=== PATIENT | male | born 1930 | race Caucasian/White ===

== ENCOUNTER 2017-07-20 07:29 | Observation (INO) | payer MEDICARE, BC ==
[~2017-07-20] VITALS: Ht 182.9 cm; Wt 84.1 kg
[2017-07-20 08:39] LABS: BASOPHILS 0.2 % (0-2); EOSINOPHILS 0.9 % (0-7); HEMATOCRIT 41.6 % (42.0-54.0); HEMOGLOBIN 14.1 g/dL (13.5-17.5); IMMATURE GRANULOCYTES 0.3 % (0-5); LYMPHOCYTES 12.5 % (15-50); MCHC 33.9 g/dL (31.0-37.0); MCV 91.4 fL (80.0-100.0); MEAN PLATELET VOLUME 10.3 fL (7.4-10.4); MONOCYTES 10.9 % (2-11); NEUTROPHILS 75.2 % (40-80); PLATELET COUNT 206 10x3/uL (130-400); RBC 4.55 10x6/uL (4.20-6.10); RDW 13.6 % (11.5-14.5); WBC 9.4 10x3/uL (4.8-10.8)
[2017-07-20 08:44] LABS: ANION GAP 13.8 mmol/L (8-16); CALCIUM 9.3 mg/dL (8.5-10.1); CARBON DIOXIDE 25.4 mmol/L (21.0-32.0); CREATININE - SERUM 1.2 mg/dL (0.6-1.3); POTASSIUM - SERUM 4.2 mmol/L (3.5-5.1)
[2017-07-20 08:46] LABS: APTT 33.2 SECONDS (22.8-39.4); INR 0.98 (0.85-1.17); PROTIME 12.6 SECONDS (11.6-15.0)
[2017-07-20 16:18] VITALS: BMI 25.1
[2017-07-20] MEDS ORDERED: FLOMAX0.4 MG PO (16:48)
[2017-07-20 16:52] VITALS: Ht 182.9 cm; Wt 84.1 kg
[2017-07-20 16:56] VITALS: BP 144/64
[2017-07-20 20:00] VITALS: BP 129/63
[2017-07-21] VITALS: BP 112/60
[2017-07-21 04:00] VITALS: BP 112/65
[2017-07-21] MEDS ORDERED: HYDROCODONE-APA1 TAB PO (07:56)
[2017-07-21] MEDS ORDERED: LIDODERM 5 %1 PATCH TRANSDERM (07:56)
[2017-07-21 07:59] VITALS: BP 115/61
== END 2017-07-21 12:00 | disposition home or self-care (01) ==
LOC: D.ER 07:29 → D.MS 14:58 → OBSVTIME 14:58 → D.MS 07-21 12:00
PROVIDERS: Emergency Medicine
DX: S27.2XXA Traumatic hemopneumothorax, initial encounter (principal); W19.XXXA Unspecified fall, initial encounter; S22.42XA Multiple fractures of ribs, left side, initial encounter for closed fracture; N40.0 Benign prostatic hyperplasia without lower urinary tract symptoms; N50.89 Other specified disorders of the male genital organs

== ENCOUNTER 2017-09-21 07:23 | Day surgery (SDC) | payer MEDICARE, BC ==
[2017-09-20 10:08] LABS: HEMATOCRIT 40.4 % (42.0-54.0); HEMOGLOBIN 13.7 g/dL (13.5-17.5); LYMPHOCYTES 27.5 % (15-50); MCH 29.8 pg (26.0-34.0); MCHC 33.9 g/dL (31.0-37.0); MEAN PLATELET VOLUME 9.5 fL (7.4-10.4); NEUTROPHILS 64.6 % (40-80); PLATELET COUNT 196 10x3/uL (130-400); RBC 4.59 10x6/uL (4.20-6.10); RDW 13.8 % (11.5-14.5)
[2017-09-20 10:14] LABS: ANION GAP 10.7 mmol/L (8-16); CALCIUM 9.2 mg/dL (8.5-10.1); CARBON DIOXIDE 28.6 mmol/L (21.0-32.0); CREATININE - SERUM 1.2 mg/dL (0.6-1.3); POTASSIUM - SERUM 4.3 mmol/L (3.5-5.1)
--- NOTE | ~2017-09-21 | OP ---
PATIENT NAME: ELYSE CARRASCO MEDICAL RECORD: [id number] :30 LOCATION:D.OPS ADMISSION DATE: SURGEON: ABBI MILNER MD DATE OF OPERATION: 09/21/2017 SURGEON: Abbi Milner MD ANESTHESIA: General anesthesia by Vitor Armenta CRNA PREOPERATIVE DIAGNOSES: Right hydrocele and also phimosis. PROCEDURE: 1. Right hydrocelectomy by Jaboulay procedure. 2. Circumcision. FINDINGS: 1. Tight phimosis. 2. Right hydrocele with 200 mL volume. SPECIMENS: 1. Hydrocele sac. 2. Foreskin of penis. ESTIMATED BLOOD LOSS: Minimal. CLINICAL HISTORY: This is an 87-year-old male who is admitted to the hospital after he fell and developed a pneumothorax. While he was in the hospital, he was complaining about swelling in the right scrotum and I saw him in consultation. A right hydrocele was detected and confirmed by ultrasound. He would like to have this removed as it is quite tense and uncomfortable for him. He is allergic to OYSTERS. We gave him ampicillin and sulbactam regional business manager to the OR. DESCRIPTION OF PROCEDURE: The patient was given induction of general anesthesia in supine position. He was then prepped and draped. While prepping him, the nurse noted that he had quite tight phimosis. The foreskin could not be retracted to expose the glans penis at all. We therefore discussed the situation with his as the patient was already asleep. Since he was asleep and he needs a circumcision, we requested permission from the to go ahead and do a circumcision as well as his right hydrocelectomy. The did give consent verbally to have the circumcision added to his procedure. We started first with the right hydrocelectomy. A median rhaphe incision was made about 3 cm in length. We went through the dartos fascia with the Bovie. A #15 blade was used to make a small opening through the hydrocele sac in the tunica vaginalis. We were then able to Yankauer sucker through this opening and drain the hydrocele fluid out. We obtained about 200 mL of fluid. The hydrocele incision in the tunica vaginalis was lengthened using Metzenbaum scissors. We were then able to suzette the testicle out through the hydrocele sac. We noted the appendix testis and appendix epididymis. These were amputated at their bases using the Bovie and the specimens were sent to pathology. The excess tunica vaginalis was trimmed off on the lateral surface. We trimmed close enough to the edge of the prostate that the other flap that remained on the medial surface was able to wrap around behind the cord and we sutured to the lateral surface of our excision. The part of the tunica vaginalis that we had trimmed off was sent to pathology as a hydrocele sac. The other edge was then OPERATIVE REPORT [id number] ELYSE CARRASCO sutured using running 4-0 Vicryl to our cut edge. This was with the other edge wrapping behind the cord, which constitutes the Jaboulay procedure. We made sure that there was no bleeding. The right testicle was then placed back into its hemiscrotum. Dartos fascia was reapproximated using running 4-0 Vicryl. Simple interrupted 4-0 Monocryl was used to close the scrotal skin. We then turned our attention to the circumcision. Hemostats were placed at the distal edge of the foreskin and the midline was crushed using a straight clamp. Metzenbaum scissors were used to make a dorsal slit. This was extended proximally until we could finally retract the foreskin and expose the glans penis fully. The glans penis was then cleaned using iodine in order to provide a sterile field. The lines of resection were marked out. First, a 2-0 nylon suture was placed through the glans penis and put on a hemostat to allow pulling the penis into full erectile length. A dorsal penile nerve block was also given prior to starting this procedure using 1% lidocaine without epinephrine. We marked the foreskin just 5-mm proximal to the palumbo of the glans penis. The cutaneous foreskin was marked at its corresponding location with the foreskin pulled back forward. The 2 incisions were made using a #10 blade. The dartos fascia in between was removed with a combination of Bovie and Metzenbaum scissors. Finally, the entire resection that we were removing was free and sent to pathology as the foreskin specimen. Any bleeding within the dartos fascia was cauterized. We then reapproximated the cutaneous foreskin to the remaining foreskin proximal to the palumbo of the glans using simple interrupted 4-0 Vicryl. A Vaseline gauze was applied around the incision line. A Kerlix dressing was applied to the penis. For the scrotal incision, fluffs and mesh panties were given. The patient was advised not to shower for 2 days to allow the incision lines to heal. At that point, he can then remove all the dressings and shower normally. I will see him in followup next week to check on wound healing. TRANSINT:[id number] Voice Confirmation ID: [id number] DOCUMENT ID: [id number] ABBI MILNER MD at 1349 CC: [id number] DICTATION DATE: 09/21/17 1315 SENIOR IT PROJECT MANAGER: 09/21/17 1341 [id number] [place] [address]
[~2017-09-21 07:23] MED LIST: EZFE 200200 MG PO; FLOMAX0.4 MG PO; HYDROCODONE-APA1 TAB PO; LIDODERM 5 %1 PATCH TRANSDERM; LIVER CLEANSE PO; PROSCAR5 MG PO
[2017-09-21 08:47] VITALS: BP 113/65; BMI 26.6
== END 2017-09-21 15:35 | disposition home or self-care (01) ==
LOC: D.OPS 07:23 → D.PAN 09:45 → D.OPS 13:00 → D.PAN 13:00 → D.OPS 15:35
PROVIDERS: Anesthesiology
DX: N43.3 Hydrocele, unspecified (principal); N47.1 Phimosis; K21.9 Gastro-esophageal reflux disease without esophagitis; Z01.812 Encounter for preprocedural laboratory examination

== ENCOUNTER → 2018-05-21 16:11 | Outpatient (CLI) | payer MEDICARE, BC | END | disposition home or self-care (01) | LOC: D.LABREF 16:11 | DX: N39.0 Urinary tract infection, site not specified (principal) ==

== ENCOUNTER 2018-06-12 05:55 | Day surgery (SDC) | payer MEDICARE, BC ==
[2018-06-11 12:20] LABS: BASOPHILS 0.6 % (0-2); EOSINOPHILS 2.7 % (0-7); HEMATOCRIT 39.2 % (42.0-54.0); HEMOGLOBIN 13.2 g/dL (13.5-17.5); LYMPHOCYTES 27.3 % (15-50); MCH 30.8 pg (26.0-34.0); MCHC 33.7 g/dL (31.0-37.0); MCV 91.4 fL (80.0-100.0); MEAN PLATELET VOLUME 10.3 fL (7.4-10.4); MONOCYTES 7.8 % (2-11); NEUTROPHILS 61.6 % (40-80); PLATELET COUNT 174 10x3/uL (130-400); RBC 4.29 10x6/uL (4.20-6.10); RDW 14.1 % (11.5-14.5); WBC 4.9 10x3/uL (4.8-10.8)
[2018-06-11 12:33] LABS: INR 0.98 (0.85-1.17); PROTIME 12.7 SECONDS (11.6-15.0)
[2018-06-11 12:36] LABS: ANION GAP 10.5 mmol/L (8-16); CALCIUM 8.6 mg/dL (8.5-10.1); CARBON DIOXIDE 29.6 mmol/L (21.0-32.0); CREATININE - SERUM 1.1 mg/dL (0.6-1.3); POTASSIUM - SERUM 4.1 mmol/L (3.5-5.1)
[~2018-06-12] VITALS: Ht 177.8 cm; Wt 81.6 kg
--- NOTE | ~2018-06-12 | OP ---
PATIENT NAME: ELYSE CARRASCO MEDICAL RECORD: [id number] :30 LOCATION:[facility] ADMISSION DATE: SURGEON: ABBI MILNER MD DATE OF OPERATION: 06/12/2018 SURGEON: Abbi Milner MD ANESTHESIA: TIVA was by Dyana Ford CRNA. DIAGNOSIS: Obstructive BPH, bulbar urethral stricture. PROCEDURE: Cystoscopy, dilation of urethral stricture, UroLift implantation times 4 units. FINDINGS: Bulbar urethral stricture. Obstructive lateral lobes of the prostate. In the bladder, there were single ureteral orifices bilaterally. The bladder was heavily trabeculated with cellules and diverticula. No bladder tumors were seen. CLINICAL HISTORY: This is an 88-year-old male, who has obstructive voiding symptoms. He recently had a urinary tract infection with Klebsiella pneumoniae. He was treated with doxycycline. Along with the UTI, he had orchitis. His urinalysis in the office was normal after treatment with antibiotics. He had quite severe obstructive voiding symptoms with his IPPS score of 16 and a quality of life score of 5, which means that he is very unhappy with his voiding symptoms. He comes today to have the UroLift procedure performed. HE IS ALLERGIC TO OYSTERS. He was given Ancef emanations analysis technician to the OR. DESCRIPTION OF PROCEDURE: The patient was given IV sedation. He was then placed into dorsal lithotomy position, prepped and draped. We visualized the urethra with the UroLift scope. A bulbar urethral stricture was found. I intended to perform an incision of this with a direct vision internal urethrotomy. The DVIU kit was brought out and the scope was placed in using an obturator. The passage of scope managed to dilate the stricture. Thus, no incision was necessary. We switched back to the UroLift scope. Findings are as outlined above. We started just at the verumontanum level. Just proximal to the verumontanum level, 1 unit was placed on each side towards the anterior urethra. This was on the lateral lobes closer to the anterior surface. Once these units were detached, we then placed 2 more units proximal to these closer to the bladder neck. The units were kept about 2 cm away from the bladder neck. He had a nice wide open urinary passage now. Placement of the UroLift devices took less than 6 minutes. The bladder was then emptied through the cystoscope sheath and then the scope was removed. I will see the patient in followup in 2 weeks' time. TRANSINT:[id number] Voice Confirmation ID: [id number] DOCUMENT ID: [id number] OPERATIVE REPORT [id number] ELYSE CARRASCO ROBERT S MD at 0958 CC: [id number] DICTATION DATE: 06/12/18911 HAND MIXER: 06/12/18 0923 [address] [address] [place] [id number]
[2018-06-12 06:27] VITALS: BP 131/65; Ht 177.8 cm; Wt 81.6 kg
== END 2018-06-12 10:25 | disposition home or self-care (01) ==
LOC: D.OPS 05:55 → D.PAN 08:00 → D.OPS 08:00
PROVIDERS: Anesthesiology
DX: N40.1 Benign prostatic hyperplasia with lower urinary tract symptoms (principal); N13.8 Other obstructive and reflux uropathy; N35.912 Unspecified bulbous urethral stricture, male

== ENCOUNTER 2019-03-04 06:59 | Inpatient (IN) | payer MEDICARE, BC ==
[~2019-03-04] VITALS: Ht 177.8 cm; Wt 83.9 kg
[2019-03-04] MEDS ORDERED: ATIVAN0.5 MG PO (07:06)
[2019-03-04] MEDS ORDERED: GAS-X125 M1 PO (07:07)
[2019-03-04 07:28] LABS: BASOPHILS 0.6 % (0-2); EOSINOPHILS 0.9 % (0-7); HEMATOCRIT 42.3 % (42.0-54.0); HEMOGLOBIN 14.9 g/dL (13.5-17.5); IMMATURE GRANULOCYTES 0.2 % (0-5); LYMPHOCYTES 20.6 % (15-50); MCH 31.2 pg (26.0-34.0); MCHC 35.2 g/dL (31.0-37.0); MCV 88.5 fL (80.0-100.0); MEAN PLATELET VOLUME 10.1 fL (7.4-10.4); MONOCYTES 8.7 % (2-11); PLATELET COUNT 183 10x3/uL (130-400); RBC 4.78 10x6/uL (4.20-6.10); RDW 12.8 % (11.5-14.5); WBC 5.4 10x3/uL (4.8-10.8)
[2019-03-04 07:42] LABS: ALBUMIN 3.8 g/dL (3.4-5.0); ANION GAP 14.6 mmol/L (8-16); BILIRUBIN - TOTAL 1.09 mg/dL (0.2-1.3); CALCIUM 9.8 mg/dL (8.5-10.1); CARBON DIOXIDE 25.9 mmol/L (21.0-32.0); CREATININE - SERUM 1.4 mg/dL (0.6-1.3); POTASSIUM - SERUM 4.5 mmol/L (3.5-5.1); PROTEIN - SERUM 8.3 g/dL (6.4-8.2)
[2019-03-04 12:23] VITALS: BP 134/62; BMI 26.6
[2019-03-04] MEDS ORDERED: [UNRECOGNIZED DRUG - OTHER] PO (13:06)
[2019-03-04] MEDS ORDERED: XANAX0.5 MG PO (13:08)
[2019-03-04] MEDS ORDERED: [UNRECOGNIZED DRUG - OTHER] PO (13:10)
[2019-03-04 16:15] LABS: AMYLASE - SERUM 32 U/L (25-115); LIPASE 126 U/L (73-393)
[2019-03-04 17:15] VITALS: BP 127/61
--- NOTE | 2019-03-04 18:50 | NUR ---
NOTIFIED PATIENT OF NEED FOR URINE AND STOOL SPECIMEN. VERBALIZED UNDERSTADING. NO QUESTIONS AT THIS TIME. IV INTACT. CALL LIGHT WITHIN REACH.
[2019-03-04 20:00] VITALS: BP 96/50
--- NOTE | 2019-03-04 20:00 | NUR ---
ALERT SITTING UP IN BED, DENIES PAIN, SEE SHIFT ASSESSMENT, CALL LIGHT IN REACH
[2019-03-05 01:59] LABS: APPEARANCE CLEAR (CLEAR); BILIRUBIN NEGATIVE (NEGATIVE); COLOR YELLOW (YELLOW); GLUCOSE NEGATIVE (NEGATIVE); KETONE SMALL mg/dL (NEGATIVE); NITRITE NEGATIVE (NEGATIVE); PROTEIN 2+ mg/dL (NEGATIVE); UROBILINOGEN NORMAL (NORMAL)
[2019-03-05 02:00] LABS: BACTERIA FEW /hpf (NONE SEEN); EPITHELIAL CELLS 0-5 /hpf (0-5); RED CELLS - URINE 0-5 /hpf (0-5); WHITE CELLS - URINE 0-5 /hpf (0-5)
[2019-03-05 07:57] LABS: ANION GAP 11.1 mmol/L (8-16); CALCIUM 8.7 mg/dL (8.5-10.1); CARBON DIOXIDE 26.7 mmol/L (21.0-32.0); CREATININE - SERUM 1.3 mg/dL (0.6-1.3); MAGNESIUM - SERUM 2.1 mg/dL (1.8-2.4); PHOSPHOROUS 3.3 mg/dL (2.5-4.9); POTASSIUM - SERUM 4.8 mmol/L (3.5-5.1)
[2019-03-05 09:33] VITALS: BP 113/56
[2019-03-05 09:41] LABS: BASOPHILS 0.4 % (0-2); EOSINOPHILS 1.1 % (0-7); HEMATOCRIT 37.2 % (42.0-54.0); HEMOGLOBIN 12.8 g/dL (13.5-17.5); IMMATURE GRANULOCYTES 0.2 % (0-5); LYMPHOCYTES 22.9 % (15-50); MCH 30.5 pg (26.0-34.0); MCHC 34.4 g/dL (31.0-37.0); MCV 88.6 fL (80.0-100.0); MONOCYTES 7.2 % (2-11); NEUTROPHILS 68.2 % (40-80); PLATELET COUNT 163 10x3/uL (130-400); RDW 12.9 % (11.5-14.5); WBC 4.7 10x3/uL (4.8-10.8)
[2019-03-05 10:03] VITALS: Ht 177.8 cm; Wt 83.9 kg
[2019-03-05 11:29] VITALS: BP 137/62
--- NOTE | 2019-03-05 15:07 | NUR ---
PT RESTING IN BED. NO SIGNS OF DISTRESS. IV TO RIGHT FORARM PATENT NO REDNESS OR TENDERNESS. DENIES ANY NEED AT THIS TIME. CALL LIGHT IN REACH. BED LOW POSITION. FAMILY AT BEDSIDE.
[2019-03-05 16:35] VITALS: BP 104/55
--- NOTE | 2019-03-05 18:45 | NUR ---
I have reviewed this patient and I concur with the Shift Assessment completed by the Licensed Practical Nurse today this shift.
[2019-03-06] VITALS: BP 107/55
[2019-03-06 04:00] VITALS: BP 152/64
--- NOTE | 2019-03-06 04:23 | NUR ---
PT RESTING IN BED. EYES CLOSED. NO SIGNS OF DISTRESS. BREATHING EVEN AND UNLABORED. IV SITE RT FA DRESSING CLEAN DRY AND INTACT. NO SIGNS OF INFECTION. SKIN CLEAN DRY AND INTACT. NO LOWER LEG SWELLOIGN PRESENT. WILL CONTINUE PLAN OF CARE. CALL LIGHT IN REACH. BED LOWERED AND LOCKED. BED RAILS UP X1.
[2019-03-06 04:45] LABS: BASOPHILS 0.2 % (0-2); EOSINOPHILS 2.2 % (0-7); HEMOGLOBIN 11.6 g/dL (13.5-17.5); MCH 30.1 pg (26.0-34.0); MCHC 34.1 g/dL (31.0-37.0); MCV 88.1 fL (80.0-100.0); MEAN PLATELET VOLUME 9.8 fL (7.4-10.4); MONOCYTES 13.2 % (2-11); NEUTROPHILS 61.4 % (40-80); PLATELET COUNT 163 10x3/uL (130-400); RBC 3.86 10x6/uL (4.20-6.10); WBC 4.1 10x3/uL (4.8-10.8)
[2019-03-06 04:55] LABS: ANION GAP 13.7 mmol/L (8-16); CALCIUM 8.5 mg/dL (8.5-10.1); CREATININE - SERUM 1.1 mg/dL (0.6-1.3); POTASSIUM - SERUM 3.7 mmol/L (3.5-5.1)
--- NOTE | 2019-03-06 06:17 | NUR ---
HAS REMAINED WITHOUT DISTRESS DURING NIGHT.CALL LIGHT IN REACH
--- NOTE | 2019-03-06 07:36 | NUR ---
RECIEVED REPORT. PATIENT IS PREPARING TO TAKE A SHOWER. HE IS ALERT AND ORIENTED. DENIES ANY NEEDS AT THIS TIME.
[2019-03-06 09:11] VITALS: BP 118/98
[2019-03-06 12:47] VITALS: BP 146/78
[2019-03-06 17:01] VITALS: BP 141/70
--- NOTE | 2019-03-06 17:26 | NUR ---
PATIENT HAD HIS FIRST MEAL OF REGULAR DIET, AND HE HAD DIARRHEA RIGHT AWAY. PATIENT AND HAVE CALLED THE DOCTORS ON HIS CASE MULTIPLE TIMES TODAY. HE WANTS TO BE DISCHARGED, HOWEVER HE STILL HAS LOTS OF GAS, NAUSEA.
--- NOTE | 2019-03-06 19:50 | NUR ---
PATIENT UP IN ROOM WALKING AROUND RETRUNED TO BED. IV IN PLACE TO RIGHT FA INFUSING NS AT 75ML/HR. ALERT AND ORENTED ABLE TO VOICE NEEDS AND WANTS TO STAFF. CALL LIGHT AND WATER IN REACH. BED LOW, NO NEEDS AT THIS TIME.
[2019-03-06 20:00] VITALS: BP 114/69
[2019-03-07] VITALS: BP 111/68
[2019-03-07 05:51] LABS: BASOPHILS 0.6 % (0-2); EOSINOPHILS 2.5 % (0-7); HEMATOCRIT 32.9 % (42.0-54.0); HEMOGLOBIN 11.3 g/dL (13.5-17.5); LYMPHOCYTES 27.9 % (15-50); MCH 30.1 pg (26.0-34.0); MCHC 34.3 g/dL (31.0-37.0); MCV 87.7 fL (80.0-100.0); MEAN PLATELET VOLUME 9.9 fL (7.4-10.4); MONOCYTES 12.4 % (2-11); NEUTROPHILS 56.6 % (40-80); PLATELET COUNT 157 10x3/uL (130-400); RBC 3.75 10x6/uL (4.20-6.10); RDW 13.1 % (11.5-14.5); WBC 3.2 10x3/uL (4.8-10.8)
[2019-03-07 06:08] LABS: ANION GAP 12.4 mmol/L (8-16); CALCIUM 8.5 mg/dL (8.5-10.1); CREATININE - SERUM 1.1 mg/dL (0.6-1.3); POTASSIUM - SERUM 3.4 mmol/L (3.5-5.1)
[2019-03-07 09:15] VITALS: BP 143/77
[2019-03-07] MEDS ORDERED: LEVAQUIN750 MG PO (09:15)
[2019-03-07] MEDS ORDERED: FLAGYL500 MG PO ×2 (09:16→09:19)
--- NOTE | 2019-03-07 09:36 | NUR ---
Nutrition follow-up: Visited with pt and re: low FODMAP diet. Reviewed foods to eleminate and the reason why. Questions answered. Pt reports he has been having issues with IBS for a long time. Pt also states he was following a glute-free diet for over a month without any releif in symptoms; however, he was eating a lot of the fruit that is high FODMAP fruit. Diet has advanced to lactose-free PO intake ~75% average of last 3 meals Wt: 184# Labs reviewed Provided pt with printed FODMAP information and will be available if needed. RDN following.
--- NOTE | 2019-03-07 11:25 | NUR ---
DISCHARGE INSTRUCTION GIVEN. SEEEMS TO UNDERSTAND IV OUT TIP INTACT. LEFT WITH HOSPITAL STAFF TO GO HOME WITH PERSONAL RIDE.
--- NOTE | 2019-03-07 12:48 | MORECARE ---
CASE MANAGEMENT DISCHARGE SUMMARY PATIENT: ELYSE CARRASCO UNIT: [id number] ADM DATE: 03/05/19 AGE: 88 : 30 SEX: M ROOM/BED: D.2227 AUTHOR: JANINE VALDIVIA PHYSICIAN: REFERRING PHYSICIAN: DHIRAJ DUKES MD DATE OF SERVICE: 03/07/19 Discharge Plan Patient Name: ELYSE CARRASCO Facility: [facility]:[place] : 1930 Planned Disposition: Home Anticipated Discharge Date: 03/07/19 Discharge Date: 03/07/2019 Expected LOS: 2 Initial Reviewer: [email or web address] Initial Review Date: 03/07/2019 Generated: 03/07/19 1:48 pm Comments DCP- Discharge Planning Updated by [email or web address]: Ana Florentino on 03/07/19 11:[address] Patient Name: ELYSE CARRASCO Admission Status: ER Accout number: [id number] Admission Date: 03-05-2019 : 1930 Admission Diagnosis:DVTRCLI OF INTEST, PART UNSP, 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 STATES PLANS TO DC TO HOME WITH TODAY. HAS A WALKER AND DENIES ANY NEEDS. PCP IS DR. PEREZ AND PHARMACY IS [facility] ON [facility]. CM TO FOLLOW AND ASSIST. Purse Maker: Ana Florentino Patient Name: ELYSE CARRASCO Page [phone] at 1248 All edits/amendments must be made on the electronic document DICTATION DATE: 03/07/19 1248 POT HOLDER BINDER: DAVID 03/07/19 1248 RPT#: [id number] DC DATE:03/07/19 STATUS: DIS IN [facility] [address] [place] [address] END OF REPORT
--- NOTE | 2019-03-08 15:42 | MORECARE ---
CASE MANAGEMENT DISCHARGE SUMMARY PATIENT: ELYSE CARRASCO UNIT: [id number] ADM DATE: 03/05/19 AGE: 88 : 30 SEX: M ROOM/BED: D.2227 AUTHOR: JANINE VALDIVIA PHYSICIAN: REFERRING PHYSICIAN: DHIRAJ DUKES MD DATE OF SERVICE: 03/08/19 Discharge Plan Patient Name: ELYSE CARRASCO Facility: [facility]:[place] : 1930 Planned Disposition: Home Anticipated Discharge Date: 03/07/19 Discharge Date: 03/07/2019 Expected LOS: 2 Initial Reviewer: [email or web address] Initial Review Date: 03/07/2019 Generated: 03/08/19 4:41 pm Comments DCP- Discharge Planning Updated by [email or web address]: Ana Florentino on 03/07/19 11:[address] Patient Name: ELYSE CARRASCO Admission Status: ER Accout number: [id number] Admission Date: 03-05-2019 : 1930 Admission Diagnosis:DVTRCLI OF INTEST, PART UNSP, 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 STATES PLANS TO DC TO HOME WITH TODAY. HAS A WALKER AND DENIES ANY NEEDS. PCP IS DR. PEREZ AND PHARMACY IS [facility] ON [facility]. CM TO FOLLOW AND ASSIST. Electrician Radio: Ana Sage DP export: 03/07/19 11:48 a Patient Name: ELYSE CARRASCO Page [phone] at 1542 All edits/amendments must be made on the electronic document DICTATION DATE: 03/08/191540 [address] PATROL COMMANDER: DAVID 03/08/191540 RPT#: [id number] DC DATE:03/07/19 STATUS: DIS [place] [address] [place] [address] END OF REPORT
[2019-03-11 18:08] LABS: HPYLORI STOOL ANTIGEN Negative (Negative)
== END 2019-03-07 11:26 | disposition home or self-care (01) | DRG 392 ==
LOC: D.ER 06:59 → D.MS 11:45 → OBSVTIME 11:50 → D.MS 03-05 11:58
PROVIDERS: Family Medicine; ADMIT Internal Medicine Nephrology; ATTEND Internal Medicine Nephrology
DX: K57.92 Diverticulitis of intestine, part unspecified, without perforation or abscess without bleeding (principal); N17.9 Acute kidney failure, unspecified; K58.9 Irritable bowel syndrome, unspecified; F41.1 Generalized anxiety disorder